=== PATIENT | male | born 1950 | race Caucasian/White ===

== ENCOUNTER 2017-11-26 12:33 | Emergency (ER) | payer MEDICARE ==
[2017-11-26] MEDS ORDERED: Ondansetron 4 MG/2 ML SDV IVPUSH ONE (13:15)
[2017-11-26] MEDS ORDERED: HYDROmorphone 1 MG/ML Syringe IVPUSH ONE (13:18)
[2017-11-26 13:23] LABS: CHLORIDE,CL 103 mmol/L (98-115); SODIUM,NA 140 mmol/L (136-145)
[2017-11-26] MEDS ORDERED: Ketorolac 30 MG/ML SDV IVPUSH ONE (13:27)
--- NOTE | 2017-11-26 13:27 | EDM.PDOC ---
ED HPI GENERAL MEDICAL PROBLEM - General Chief Complaint: Abdominal Pain Stated Complaint: CHEST PAIN Time Seen by Provider: 11/26/17 13:14 Source of Information: Reports: Patient History Limitations: Reports: No Limitations - History of Present Illness INITIAL COMMENTS - FREE TEXT/NARRATIVE: Patient presents with abdominal pain that started about 6 hours ago at 0730 this morning. He took his morning meds but hasn't eaten anything today. He feels "backed up". He had a bowel movement yesterday but nothing today and not passing gas. He doesn't feel much pressure at the rectum. Lots of belching and abdominal pressure. He says he has had this a few times before, most recently 4-6 weeks ago. They usually last about a day and resolve after passing gas/stool and belching. This one seems a little worse and he isn't passing gas. He normally passes stool daily regularly. He has nausea but no vomiting. Abdominal Pain Score (Numeric/FACES): 6 - Related Data Allergies Allergy/AdvReac Type Severity Reaction Status Date / Time No Known Drug Allergies Allergy Cannot Verified 11/26/17 12:42 Remember Home Meds: Home Meds Aspirin [Adult Aspirin] 81 mg PO DAILY 11/26/17 [History] Lisinopril 20 mg PO DAILY 11/26/17 [History] Metoprolol Tartrate [Lopressor] 25 mg PO Q12HR 11/26/17 [History] Multivitamin [Multivitamins] 1 each PO DAILY 11/26/17 [History] Tamsulosin HCl [Flomax] 0.4 mg PO DAILY 11/26/17 [History] Social & Family History - Tobacco Use Smoking Status *Q: Current Every Day Smoker Years of Tobacco use: 55 Packs/Tins Daily: 1 Second Hand Smoke Exposure: Yes - Caffeine Use Caffeine Use: Reports: Soda - Recreational Drug Use Recreational Drug Use: No ED ROS GENERAL - Review of Systems Review Of Systems: See Below Constitutional: Denies: Fever, Chills, Weakness HEENT: Reports: No Symptoms Respiratory: Reports: No Symptoms. Denies: Shortness of Breath Cardiovascular: Reports: No Symptoms. Denies: Chest Pain, Lightheadedness, Syncope Endocrine: Reports: No Symptoms GI/Abdominal: Reports: Abdominal Pain, Decreased Appetite, Nausea. Denies: Bloody Stool, Constipation (not generally), Diarrhea, Vomiting : Reports: No Symptoms. Denies: Flank Pain Musculoskeletal: Reports: No Symptoms Skin: Reports: No Symptoms. Denies: Cyanosis, Jaundice, Mottled, Pallor, Diaphoresis Neurological: Reports: No Symptoms. Denies: Confusion, Seizure, Syncope, Weakness, Change in Speech Psychiatric: Denies: Agitation, Anxiety, Confusion ED EXAM, GI/ABD - Physical Exam Exam: See Below Exam Limited By: No Limitations General Appearance: Alert, WD/WN, No Apparent Distress Eyes: Bilateral: Normal Appearance, EOMI Ears: Normal External Exam, Hearing Grossly Normal Nose: Normal Inspection, No Blood Throat/Mouth: Normal Inspection, Normal Lips, Normal Voice, No Airway Compromise Head: Atraumatic, Normocephalic Neck: Normal Inspection, Full Range of Motion Respiratory/Chest: No Respiratory Distress, Lungs Clear, Normal Breath Sounds, No Accessory Muscle Use Cardiovascular: Regular Rate, Rhythm, No Murmur, No Rub GI/Abdominal Exam: Distended, Guarding, Tender (tender generally throughout but worse at umbilicus and suprapubic.), Abnormal Bowel Sounds (decreased). No: Rigid Rectal (Males) Exam: Normal Exam, Normal Rectal Tone, BPH, Heme - Stool. No: Black Stool, Fecal Impaction, Hemorrhoids, Mass, Perirectal Abscess, Prostate Nodule, Rectal Fissure, Tenderness Back Exam: Full Range of Motion. No: CVA Tenderness (L), CVA Tenderness (R) Extremities: Normal Inspection Neurological: Alert, Oriented, Normal Cognition, No Motor/Sensory Deficits Psychiatric: Normal Affect, Normal Mood Skin Exam: Warm, Dry, Intact, Normal Color, No Rash Course - Vital Signs Last Recorded V/S: Last Vital Signs Temp 95.8 F 11/26/17 12:40 Pulse 56 L 11/26/17 12:40 Resp 16 11/26/17 12:40 BP 142/84 H 11/26/17 12:40 Pulse Ox 97 11/26/17 12:40 - Orders/Labs/Meds Orders: Active Orders 24 hr Category Date Time Status Abdomen Pelvis w Cont [CT] Stat Exams 11/26/17 13:27 Ordered Sodium Chloride 0.9% [Normal Saline] 50 ml Med 11/26/17 14:00 Active IV ASDIRECTED Medication Orders Sodium Chloride (Normal Saline) 50 mls @ 3 mls/sec IV ASDIRECTED JONI Last Admin: 11/26/17 15:25 Dose: 3 mls/sec Labs: Laboratory Tests 11/26/17 11/26/17 Range/Units 13:00 13:00 WBC 8.7 (5.0-10.0) 10^3/uL RBC 4.91 (4.50-6.00) 10^6/uL Hgb 15.2 (13.0-17.0) g/dL Hct 45.7 (40.0-52.0) % MCV 93.0 H (82.0-92.0) fL MCH 31.0 (27.0-31.0) pg MCHC 33.4 (32.0-36.0) g/dL RDW 13.4 (11.5-14.5) % Plt Count 162 (150-300) 10^3/uL MPV 8.5 (7.4-10.4) fL Neut % (Auto) 74.3 H (50.0-70.0) % Lymph % (Auto) 17.0 L (20.0-40.0) % [place] % (Auto) 6.7 (2.0-8.0) % Eos % (Auto) 1.8 (1.0-3.0) % Baso % (Auto) 0.2 (0.0-1.0) % Neut # (Auto) 6.4 (2.5-7.0) 10^3/uL Lymph # (Auto) 1.5 (1.0-4.0) 10^3/uL [place] # (Auto) 0.6 (0.1-0.8) 10^3/uL Eos # (Auto) 0.2 (0.1-0.3) 10^3/uL Baso # (Auto) 0.0 (0.0-0.1) 10^3/uL Sodium 140 (136-145) mmol/L Potassium 4.3 (3.3-5.3) mmol/L Chloride 103 (98-115) mmol/L Carbon Dioxide 29.5 (21.0-32.0) mmol/L BUN 12 (6-25) mg/dL Creatinine 0.94 (0.51-1.17) mg/dL Est Cr Clr Drug Dosing 58.09 mL/min Estimated GFR (MDRD) > 60 mL/min Glucose 128 H (70-110) mg/dL Calcium 9.1 (8.7-10.3) mg/dL Total Bilirubin 0.5 (0.2-1.0) mg/dL AST 19 (15-37) U/L ALT 21 (12-78) U/L Alkaline Phosphatase 102 (46-116) IU/L Total Protein 7.2 (6.4-8.2) g/dL Albumin 3.89 (3.00-4.80) g/dL Lipase 129 (73-393) U/L Meds: Medications Generic Name Dose Route Start Last Admin Trade Name Freq PRN Reason Stop Dose Admin Sodium Chloride 50 mls @ 3 mls/sec 11/26/17 14:00 11/26/17 15:25 Normal Saline IV 3 mls/sec ASDIRECTED JONI Administration Discontinued Medications Generic Name Dose Route Start Last Admin Trade Name Freq PRN Reason Stop Dose Admin Hydromorphone HCl 1 mg 11/26/17 13:18 11/26/17 13:28 Dilaudid IVPUSH 11/26/17 13:19 1 mg ONETIME ONE Administration Sodium Chloride 1,000 mls @ 999 mls/hr 11/26/17 13:33 11/26/17 13:39 Normal Saline IV 11/26/17 14:33 999 mls/hr .BOLUS ONE Administration Iopamidol 75 ml 11/26/17 13:48 11/26/17 15:25 Isovue-300 (61%) IV 75 ml . DIRECTED PRN Administration FOR RADIOLOGY EXAM Ketorolac Tromethamine 30 mg 11/26/17 13:27 11/26/17 13:30 Toradol IVPUSH 11/26/17 13:28 30 mg ONETIME ONE Administration Ondansetron HCl 4 mg 11/26/17 13:15 11/26/17 13:15 Zofran IVPUSH 11/26/17 13:16 4 mg ONETIME ONE Administration - Re-Assessments/Exams Free Text/Narrative Re-Assessment/Exam: 11/26/17 14:44 Labs okay. Patient reports pain is down to 3 or 4 from 10 after Dilaudid and Toradol. The CT attempt didn't work due to scanner difficulties. [employer] is checking something and we will transfer to [place] (patient's preference) if we can't get the scan here. The concern is still bowel obstruction as patient is not passing gas and much less belching than he usually has when he gets these episodes. Usually the episodes are relieved when he can pass a bunch of gas and belching but today is worse. Rectal exam reveals no fecal impaction at all. 11/26/17 16:17 CT reveals acute uncomplicated diverticulitis at junction of descending and sigmoid segments of colon. Discussed findings with Dr. Tristan and with patient along with treatment plan. Patient is feeling much better now and wants to just use Ibuprofen at home as he wishes to avoid narcotics. Discharged to home in stable condition. Departure - Departure Time of Disposition: 16:14 Disposition: Home, Self-Care 01 Condition: Good Clinical Impression: Acute diverticulitis - Discharge Information Referrals: Abigail Dahl MD [Primary Care Provider] - Forms: ED Department Discharge Additional Instructions: 1. Drink 8 cups of water daily. 2. Take the Ciprofloxacin and the Metronidazole as directed. 3. For pain control you can use Ibuprofen 600 mg every 8 hours as needed. 4. Follow up with your PCP next week for recheck or sooner if worsening. - My Orders Last 24 Hours: My Active Orders 11/26/17 13:27 Abdomen Pelvis w Cont [CT] Stat 11/26/17 14:00 Sodium Chloride 0.9% [Normal Saline] 50 ml IV ASDIRECTED - Assessment/Plan Last 24 Hours: My Active Orders 11/26/17 13:27 Abdomen Pelvis w Cont [CT] Stat 11/26/17 14:00 Sodium Chloride 0.9% [Normal Saline] 50 ml IV ASDIRECTED
[2017-11-26] MEDS ORDERED: Sodium Chloride 0.9% 1,000 ML IV ONE (13:33)
[2017-11-26] MEDS ORDERED: Iopamidol 612 MG/ML 75 ML Bottle IV PRN (13:48)
[2017-11-26] MEDS ORDERED: Sodium Chloride 0.9% 50 ML IV SCH (14:00)
== END 2017-11-26 16:40 | disposition home or self-care (01) ==
LOC: KA.ED 12:33
DX: K57.32 Diverticulitis of large intestine without perforation or abscess without bleeding (principal); F17.210 Nicotine dependence, cigarettes, uncomplicated; Z79.82 Long term (current) use of aspirin
CPT/HCPCS: 74177; 80053; 83690; 85025; 96361; 96374; 96375; 99285; J1170; J1885; J2405; J7030; J7050; Q9967; 99284

== ENCOUNTER 2017-12-14 00:10 | Emergency (ER) | payer MEDICARE, OTHER ==
[2017-12-14] MEDS ORDERED: Sodium Chloride 0.9% 5 ML Syringe FLUSH PRN (00:40)
[2017-12-14] MEDS ORDERED: HYDROmorphone 1 MG/ML Syringe IVPUSH ONE ×2 (00:47→01:21)
[2017-12-14] MEDS ORDERED: Ondansetron 4 MG/2 ML SDV IVPUSH ONE (00:47)
--- NOTE | 2017-12-14 00:47 | EDM.PDOC ---
ED HPI GENERAL MEDICAL PROBLEM - General Chief Complaint: Abdominal Pain Stated Complaint: lower abdominal pain Time Seen by Provider: 12/14/17 00:10 Source of Information: Reports: Patient History Limitations: Reports: No Limitations - History of Present Illness INITIAL COMMENTS - FREE TEXT/NARRATIVE: 66 YO WM presents to ER complaining of right inguinal hernia pain which began today. Pt reports he noticed increased swelling in right lower groin today with minimal pain. Pt was seen by Dr Min- Surgery in [facility] today who evaluated patient and recommended inguinal hernia repair and scheduled surgery for wednesday12/17/17. Pt states tonight pain became more severe and he noticed he was unable to reduce the swelling in his groin on his own prompting ER evaluation. Pt denies nausea/vomiting. Pt reports he is unable to move bowels or pass gas at this time. Onset: Today Onset Date: 12/14/17 Location: Reports: Abdomen Quality: Reports: Ache Severity: Moderate Improves with: Reports: None Worsens with: Reports: None Associated Symptoms: Reports: No Other Symptoms - Related Data Allergies Allergy/AdvReac Type Severity Reaction Status Date / Time No Known Drug Allergies Allergy Cannot Verified 11/26/17 12:42 Remember Home Meds: Home Meds Aspirin [Adult Aspirin] 81 mg PO DAILY 11/26/17 [History] Lisinopril 20 mg PO DAILY 11/26/17 [History] Metoprolol Tartrate [Lopressor] 25 mg PO Q12HR 11/26/17 [History] Multivitamin [Multivitamins] 1 each PO DAILY 11/26/17 [History] Past Medical History Cardiovascular History: Reports: Hypertension Respiratory History: Reports: None Gastrointestinal History: Reports: None Genitourinary History: Reports: Prostate Disorder Musculoskeletal History: Reports: None Neurological History: Reports: None Psychiatric History: Reports: None Endocrine/Metabolic History: Reports: None Hematologic History: Reports: None Dermatologic History: Reports: None - Infectious Disease History Infectious Disease History: Reports: Chicken Pox - Past Surgical History HEENT Surgical History: Reports: Oral Surgery Cardiovascular Surgical History: Reports: None Respiratory Surgical History: Reports: None GI Surgical History: Reports: None Male Surgical History: Reports: None Endocrine Surgical History: Reports: None Neurological Surgical History: Reports: None Musculoskeletal Surgical History: Reports: None Dermatological Surgical History: Reports: None Social & Family History - Family History Family Medical History: Noncontributory - Caffeine Use Caffeine Use: Reports: Soda ED ROS GENERAL - Review of Systems Review Of Systems: See Below Constitutional: Reports: No Symptoms HEENT: Reports: No Symptoms Respiratory: Reports: No Symptoms Cardiovascular: Reports: No Symptoms Endocrine: Reports: No Symptoms GI/Abdominal: Reports: Abdominal Pain : Reports: No Symptoms Musculoskeletal: Reports: No Symptoms Skin: Reports: No Symptoms Neurological: Reports: No Symptoms Psychiatric: Reports: No Symptoms Hematologic/Lymphatic: Reports: No Symptoms Immunologic: Reports: No Symptoms ED EXAM, GI/ABD - Physical Exam Exam: See Below Exam Limited By: No Limitations General Appearance: Alert, WD/WN, No Apparent Distress Head: Atraumatic, Normocephalic Neck: Normal Inspection, Supple, Non-Tender, Full Range of Motion Respiratory/Chest: No Respiratory Distress, Lungs Clear, Normal Breath Sounds, No Accessory Muscle Use, Chest Non-Tender Cardiovascular: Normal Peripheral Pulses, Regular Rate, Rhythm, No Edema, No Gallop, No JVD, No Murmur, No Rub GI/Abdominal Exam: Normal Bowel Sounds, Soft, No Organomegaly, No Abnormal Bruit , Pelvis Stable, Distended, Guarding, Tender, Hernia (Male) Exam: Hernia Back Exam: Normal Inspection, Full Range of Motion, NT Extremities: Normal Inspection, Normal Range of Motion, Non-Tender, Normal Capillary Refill, No Pedal Edema Neurological: Alert, Oriented, CN II-XII Intact, Normal Cognition, Normal Gait, Normal Reflexes, No Motor/Sensory Deficits Psychiatric: Normal Affect, Normal Mood Skin Exam: Warm, Dry, Intact, Normal Color, No Rash Lymphatic: No Adenopathy Course - Vital Signs Last Recorded V/S: Last Vital Signs Temp 36.4 C 12/14/17 00:40 Pulse 67 12/14/17 00:40 Resp 20 12/14/17 00:40 BP 171/99 H 12/14/17 00:40 Pulse Ox 97 12/14/17 00:40 - Orders/Labs/Meds Orders: Active Orders 24 hr Category Date Time Status Peripheral IV Care [RC] . DIRECTED Care 12/14/17 00:40 Ordered CBC WITH AUTO DIFF [HEME] Stat Lab 12/14/17 00:40 Ordered COMPREHENSIVE METABOLIC PN,CMP [CHEM] Stat Lab 12/14/17 00:40 Ordered LIPASE [CHEM] Stat Lab 12/14/17 00:40 Ordered UA W/MICROSCOPIC [URIN] Stat Lab 12/14/17 00:40 Ordered Sodium Chloride 0.9% [Syrex Flush] Med 12/14/17 00:40 Ordered 5 ml FLUSH Q8HR PRN Peripheral IV Insertion Adult [OM.PC] Routine Oth 12/14/17 00:40 Ordered Medication Orders Sodium Chloride (Syrex Flush) 5 ml FLUSH Q8HR PRN PRN Reason: Keep Vein Open Meds: Medications Generic Name Dose Route Start Last Admin Trade Name Freq PRN Reason Stop Dose Admin Sodium Chloride 5 ml 12/14/17 00:40 Syrex Flush FLUSH Q8HR PRN Keep Vein Open Discontinued Medications Generic Name Dose Route Start Last Admin Trade Name Freq PRN Reason Stop Dose Admin Hydromorphone HCl 1 mg 12/14/17 00:47 Dilaudid IVPUSH 12/14/17 00:48 ONETIME ONE Hydromorphone HCl Confirm 12/14/17 00:49 Dilaudid Administered 12/14/17 00:50 Dose 1 mg .ROUTE .STK-MED ONE Ondansetron HCl 4 mg 12/14/17 00:47 Zofran IVPUSH 12/14/17 00:48 ONETIME ONE Ondansetron HCl Confirm 12/14/17 00:49 Zofran Administered 12/14/17 00:50 Dose 4 mg .ROUTE .STK-MED ONE - Re-Assessments/Exams Free Text/Narrative Re-Assessment/Exam: 12/14/17 01:09 attempted to reduced inguinal hernia in ER and was unsuccessful. Call placed to Dr Min- General Surgery for further management. Departure - Departure Time of Disposition: 01:22 Disposition: DC/Tfer to Acute Hospital 02 Condition: Fair Clinical Impression: Incarcerated right inguinal hernia - Discharge Information Forms: ED Department Discharge, Interfacility Transfer EMTALA - My Orders Last 24 Hours: My Active Orders 12/14/17 00:40 Peripheral IV Care [RC] . DIRECTED CBC WITH AUTO DIFF [HEME] Stat COMPREHENSIVE METABOLIC PN,CMP [CHEM] Stat LIPASE [CHEM] Stat UA W/MICROSCOPIC [URIN] Stat Sodium Chloride 0.9% [Syrex Flush] 5 ml FLUSH Q8HR PRN Peripheral IV Insertion Adult [OM.PC] Routine - Assessment/Plan Last 24 Hours: My Active Orders 12/14/17 00:40 Peripheral IV Care [RC] . DIRECTED CBC WITH AUTO DIFF [HEME] Stat COMPREHENSIVE METABOLIC PN,CMP [CHEM] Stat LIPASE [CHEM] Stat UA W/MICROSCOPIC [URIN] Stat Sodium Chloride 0.9% [Syrex Flush] 5 ml FLUSH Q8HR PRN Peripheral IV Insertion Adult [OM.PC] Routine Assessment:: 1. right inguinal hernia- incarcerated- Unable to reduce with manual pressure Plan: 1. Transfer to [facility] for surgical intervention and evaluation- Dr Min 2. NS @ 125cc/hr 3. Dilaudid/zofran 4. supportive care
[2017-12-14] MEDS ORDERED: Ondansetron 4 MG/2 ML SDV ONE (00:49)
[2017-12-14] MEDS ORDERED: HYDROmorphone 1 MG/ML Syringe ONE (00:49)
[2017-12-14] MEDS ORDERED: Sodium Chloride 0.9% 1,000 ML IV ONE (01:22)
[2017-12-14 01:40] LABS: CHLORIDE,CL 99 mmol/L (98-115); SODIUM,NA 135 mmol/L (136-145)
== END 2017-12-14 01:45 ==
LOC: KA.ED 00:10
DX: K46.0 Unspecified abdominal hernia with obstruction, without gangrene (principal); I10 Essential (primary) hypertension; Z79.82 Long term (current) use of aspirin; Z79.899 Other long term (current) drug therapy
CPT/HCPCS: 80053; 83690; 85025; 96374; 99285; J1170; J2405; J7030; 99284

== ENCOUNTER 2020-07-30 08:54 | Day surgery (SDC) | payer MEDICARE ==
[~2020-07-30 08:54] MED LIST: Lactated Ringers 1,000 ML IV SCH; Sodium Chloride 0.9% 10 ML Syringe FLUSH PRN
[2020-07-30] MEDS ORDERED: Midazolam 1 MG/ML 2 ML SDV IV ONE (08:55)
[2020-07-30] MEDS ORDERED: Propofol 200 MG/20 ML SDV IV ONE (08:55)
[2020-07-30] MEDS ORDERED: Propofol 200 MG/20 ML SDV ONE (09:43)
[2020-07-30] MEDS ORDERED: Midazolam 1 MG/ML 2 ML SDV ONE (09:43)
--- NOTE | 2020-07-30 09:44 | PCM.PN ---
- General Info Date of Service: 07/30/20 - Review of Systems Systems Review Comment:: 69-year-old male referred for his initial colonoscopy. He did have some diarrhea after use of antibiotics recently although this seems to have cleared now. He denies any family history of colon cancer. His history and physical is reviewed and no significant changes are noted. I have discussed the proposed colonoscopy with the patient. Risks such as but not limited to bleeding and GI injury reviewed. He agrees to proceed. - Patient Data Vitals - Most Recent: Last Vital Signs Temp 96.7 F L 07/30/20 09:10 Pulse 63 07/30/20 09:10 Resp 16 07/30/20 09:10 BP 138/83 07/30/20 09:10 Pulse Ox 98 07/30/20 09:10 Weight - Most Recent: 69.853 kg Med Orders - Current: Current Medications Lactated Ringer's (Ringers, Lactated) 1,000 mls @ 50 mls/hr IV ASDIRECTED [facility] Last Admin: 07/30/20 09:31 Dose: 50 mls/hr Documented by: Sodium Chloride (Saline Flush) 10 ml FLUSH Q8HR PRN PRN Reason: keep vein open Sepsis Event Note - Focused Exam Vital Signs: Vital Signs Temp Pulse Resp BP Pulse Ox 07/30/20 09:10 96.7 F L 63 16 138/83 98 - Problem List Review Problem List Initiated/Reviewed/Updated: Yes - My Orders Last 24 Hours: My Active Orders 07/30/20 07:33 Resuscitation Status Routine 07/30/20 Breakfast Nothing Per Oral Diet [DIET] 07/30/20 08:45 Peripheral IV Care [RC] . DIRECTED Lactated Ringers [Ringers, Lactated] 1,000 ml IV ASDIRECTED Sodium Chloride 0.9% [Saline Flush] 10 ml FLUSH Q8HR PRN Peripheral IV Insertion Adult [OM.PC] Routine 07/30/20 09:00 Patient to Empty Bladder [RC] ASDIRECTED 07/30/20 09:45 Verify Patient Consent Obtain [RC] ASDIRECTED - Assessment Assessment:: Colon cancer screening - Plan Plan:: Colonoscopy
--- NOTE | 2020-07-30 10:30 | PCM.OPNOTE ---
- General Post-Op/Procedure Note Date of Surgery/Procedure: 07/30/20 Operative Procedure(s): Colonoscopy with Polypectomy and Biopsy Findings: Flat mass in colon wall 12-15cm from anal verge Pedunculated polyp rectum 1cm from anal verge Extensive diverticulosis in Sigmoid colon Pre Op Diagnosis: Colon Cancer Screening Post-Op Diagnosis: Colon Mass. Colon Polyp. Sigmoid Diverticulosis Anesthesia Technique: MAC Primary Surgeon: Osmar Daniel Pathology: Colon polyp Biopsies of colon mass EBL in mLs: 3 Complications: None Condition: Good
--- NOTE | 2020-07-30 19:05 | OR ---
DATE OF SURGERY: 07/30/2020 SURGEON: Osmar Daniel MD PREOPERATIVE DIAGNOSIS: Colon cancer screening. POSTOPERATIVE DIAGNOSIS: Colon mass, rectal polyp, sigmoid diverticulosis. OPERATION PERFORMED: Colonoscopy with polypectomy and biopsy. INDICATIONS FOR SURGERY: This 69-year-old male is referred today for his initial screening colonoscopy. He did have some recent diarrhea related to antibiotic use, but this has now cleared. He denies any family history of colon cancer. FINDINGS: In the sigmoid colon approximately 12-15 cm from the anal verge, the patient has a flat mass approximately 3 cm in size. It is somewhat firm and slightly raised. It is visibly worrisome for malignancy, although no ulceration is noted. There is a pedunculated polyp 1 cm in size located in the rectum 1 cm from the anal verge. The patient also has extensive diverticulosis throughout the sigmoid colon. Although this does not appear to be acutely inflamed. PROCEDURE IN DETAIL: The patient was taken to the operating room. He was given intravenous sedation and with him in the left lateral decubitus position, digital rectal exam was performed showing no rectal masses. The Olympus colonoscope was inserted into the rectum. Retroflexed examination of the rectal canal is performed. The above-described polyp in the rectum was identified. This was removed with a cautery snare and retrieved. The scope was then carefully advanced under direct visualization through the entire length of the colon until the cecum is reached. Cecal acquisition is confirmed by noting the normal internal cecal anatomy including the appendiceal orifice and the ileocecal valve. The light was also noted to transilluminate the abdominal wall in the right lower quadrant. After examining the cecum, the scope was slowly withdrawn sequentially re-examining the colonic segments. In the distal sigmoid region, the above-described flat colon mass is identified because of its size and configuration and it could not be safely and completely removed with standard polypectomy technique, so multiple biopsies of the mass are taken to rule out malignancy. Tattoo is placed in the mucosal wall near this mass for future identification. The examination is completed and with no sign of any complications, the scope was removed. The patient was taken from the operating room in satisfactory condition. ESTIMATED BLOOD LOSS: 3 mL. COMPLICATIONS: None. PROGNOSIS: Good. /[id number]/MODL MTDD
== END 2020-07-30 11:55 | disposition home or self-care (01) ==
LOC: KA.SDS 08:54
PROVIDERS: ATTEND Surgery
DX: Z12.11 Encounter for screening for malignant neoplasm of colon (principal); C18.7 Malignant neoplasm of sigmoid colon; K57.30 Diverticulosis of large intestine without perforation or abscess without bleeding; I10 Essential (primary) hypertension; F17.200 Nicotine dependence, unspecified, uncomplicated; Z88.1 Allergy status to other antibiotic agents; Z79.82 Long term (current) use of aspirin; Z79.899 Other long term (current) drug therapy; Z98.890 Other specified postprocedural states
CPT/HCPCS: 00812; 88305; 88341; 88342; J2250; J2704; J7120

== ENCOUNTER 2021-06-22 07:35 | Emergency (ER) | payer MEDICARE, OTHER ==
[2021-06-22 08:24] LABS: ANION GAP 14.9 mmol/L (5-15); CHLORIDE,CL 99 mmol/L (98-107); SODIUM,NA 138 mmol/L (136-145)
--- NOTE | 2021-06-22 08:30 | EDM.PDOC ---
ED HPI GENERAL MEDICAL PROBLEM - General Chief Complaint: Respiratory Problem Stated Complaint: SHORT OF BREATH Time Seen by Provider: 06/22/21 08:07 Source of Information: Reports: Patient History Limitations: Reports: No Limitations - History of Present Illness INITIAL COMMENTS - FREE TEXT/NARRATIVE: Patient presents with dyspnea and a tickle in his throat. The tickle started 7 days ago and slowly progressed. He also has a cough. He is a 50+year smoker and suspects that he has COPD. He denies any heart problems or diabetes. For a long time he has had a hernia in the left lower abdomen. It has been hurting some when he coughs too much; it doesn't protrude very often and he can tell when it is "out". - Related Data Allergies Allergy/AdvReac Type Severity Reaction Status Date / Time clindamycin Allergy Diarrhea Verified 06/22/21 08:00 Home Meds: Home Meds Aspirin [Adult Aspirin] 81 mg PO DAILY 11/26/17 [History] Lisinopril 20 mg PO DAILY 11/26/17 [History] Metoprolol Tartrate [Lopressor] 25 mg PO Q12HR 11/26/17 [History] Multivitamin [Multivitamins] 1 each PO DAILY 11/26/17 [History] Triamcinolone Acetonide [Triamcinolone Acetonide 0.1% Crm] 1 applic TOP TID 07/29/20 [History] Past Medical History HEENT History: Reports: None Cardiovascular History: Reports: Hypertension Respiratory History: Reports: None Gastrointestinal History: Reports: Hemorrhoids Other Gastrointestinal History: Inguinal hernia present, no flatus at this time, lots of bealching. Genitourinary History: Reports: Prostate Disorder, STD Musculoskeletal History: Reports: None Neurological History: Reports: None Psychiatric History: Reports: Addiction Endocrine/Metabolic History: Reports: None Hematologic History: Reports: None Immunologic History: Reports: None Oncologic (Cancer) History: Reports: None Dermatologic History: Reports: None - Infectious Disease History Infectious Disease History: Reports: Chicken Pox - Past Surgical History Head Surgeries/Procedures: Reports: None HEENT Surgical History: Reports: Oral Surgery Cardiovascular Surgical History: Reports: None Respiratory Surgical History: Reports: None GI Surgical History: Reports: Hernia, Inguinal Male Surgical History: Reports: Vasectomy Endocrine Surgical History: Reports: None Neurological Surgical History: Reports: None Musculoskeletal Surgical History: Reports: None Oncologic Surgical History: Reports: None Dermatological Surgical History: Reports: None Social & Family History - Family History Family Medical History: No Pertinent Family History - Tobacco Use Tobacco Use Status *Q: Current Every Day Tobacco User Years of Tobacco use: 50 Packs/Tins Daily: 1 Used Tobacco, but Quit: No - Caffeine Use Caffeine Use: Reports: None - Recreational Drug Use Recreational Drug Use: No ED ROS GENERAL - Review of Systems Review Of Systems: See Below Constitutional: Denies: Fever, Chills, Malaise, Weakness, Fatigue HEENT: Denies: Ear Pain, Throat Pain, Vision Change Respiratory: Reports: Shortness of Breath, Cough Cardiovascular: Denies: Chest Pain, Lightheadedness, Syncope GI/Abdominal: Reports: Abdominal Pain (LLQ hernia that hurts when he coughs too much). Denies: Vomiting : Denies: Dysuria, Flank Pain Musculoskeletal: Reports: No Symptoms Skin: Denies: Cyanosis, Jaundice, Mottled, Pallor, Diaphoresis Neurological: Denies: Confusion, Dizziness, Headache, Seizure, Syncope, Trouble Speaking, Difficulty Walking Psychiatric: Denies: Agitation, Anxiety, Confusion ED EXAM, GENERAL - Physical Exam Exam: See Below Exam Limited By: No Limitations General Appearance: Alert, WD/WN, No Apparent Distress Eye Exam: Bilateral Eye: EOMI, Normal Inspection, PERRL Ears: Normal External Exam, Hearing Grossly Normal Nose: Normal Inspection, No Blood Throat/Mouth: Normal Inspection, Normal Lips, Normal Oropharynx, Normal Voice, No Airway Compromise Head: Atraumatic, Normocephalic Neck: Normal Inspection, Full Range of Motion Respiratory/Chest: No Respiratory Distress, No Accessory Muscle Use, Crackles (right lung base) Cardiovascular: Normal Peripheral Pulses, Regular Rate, Rhythm, No Edema, No Murmur GI/Abdominal: Normal Bowel Sounds, Soft, Non-Tender, No Organomegaly, Other (Exam doesn't show any sign of hernia currently and he says he can tell it is not "out" now.) Back Exam: Normal Inspection, Full Range of Motion. No: CVA Tenderness (L), CVA Tenderness (R) Extremities: Normal Inspection, Normal Range of Motion Neurological: Alert, Oriented, Normal Cognition, No Motor/Sensory Deficits Psychiatric: Normal Affect, Normal Mood Skin Exam: Warm, Dry, Intact, Normal Color, No Rash Course - Vital Signs Last Recorded V/S: Last Vital Signs Temp 96.6 F L 06/22/21 07:40 Pulse 57 L 06/22/21 08:34 Resp 16 06/22/21 08:34 BP 144/93 H 06/22/21 08:34 Pulse Ox 96 06/22/21 08:34 - Orders/Labs/Meds Labs: Laboratory Tests 06/22/21 06/22/21 Range/Units 07:54 07:54 WBC 6.50 (5.00-10.00) 10^3/uL RBC 4.69 (4.50-6.00) 10^6/uL Hgb 14.4 (13.0-17.0) g/dL Hct 41.6 (40.0-52.0) % MCV 88.7 D (82.0-92.0) fL MCH 30.7 (27.0-31.0) pg MCHC 34.6 (32.0-36.0) g/dL RDW 12.9 (11.5-14.5) % Plt Count 110 L D (150-400) 10^3/uL MPV 10.2 (7.4-10.4) fL Immature Gran % (Auto) 0.2 (0.0-5.0) % Neut % (Auto) 79.6 H (50.0-70.0) % Lymph % (Auto) 10.0 L (20.0-40.0) % [place] % (Auto) 9.5 H (2.0-8.0) % Eos % (Auto) 0.5 L (1.0-3.0) % Baso % (Auto) 0.2 (0.0-1.0) % Neut # (Auto) 5.18 (2.50-7.00) 10^3/uL Lymph # (Auto) 0.65 L (1.00-4.00) 10^3/uL [place] # (Auto) 0.62 (0.10-0.80) 10^3/uL Eos # (Auto) 0.03 L (0.10-0.30) 10^3/uL Baso # (Auto) 0.01 (0.00-0.10) 10^3/uL Immature Gran # (Auto) 0.01 (0.00-0.50) 10^3/uL Sodium 138 (136-145) mmol/L Potassium 3.5 (3.5-5.1) mmol/L Chloride 99 (98-107) mmol/L Carbon Dioxide 27.6 (21.0-32.0) mmol/L Anion Gap 14.9 (5-15) mmol/L BUN 15 (7-18) mg/dL Creatinine 0.88 (0.51-1.17) mg/dL Est Cr Clr Drug Dosing 58.60 mL/min Estimated GFR (MDRD) > 60 mL/min Glucose 100 (70-140) mg/dL Calcium 8.9 (8.7-10.3) mg/dL Total Bilirubin 0.9 (0.2-1.0) mg/dL AST 48 H (15-37) U/L ALT 32 (14-63) U/L Alkaline Phosphatase 106 (46-116) U/L Total Protein 7.6 (6.4-8.2) g/dL Albumin 4.10 (3.40-5.00) g/dL Meds: Medications Discontinued Medications Generic Name Dose Route Start Last Admin Trade Name Freq PRN Reason Stop Dose Admin Azithromycin 500 mg 06/22/21 09:19 Azithromycin 250 Mg Tab PO 06/22/21 09:20 ONETIME ONE Cefdinir 600 mg 06/22/21 09:19 Cefdinir 300 Mg Cap PO 06/22/21 09:20 ONETIME ONE - Re-Assessments/Exams Free Text/Narrative Re-Assessment/Exam: 06/22/21 09:22 CXR shows a possible mild infiltrate in RLL to my eye; the report calling it airway disease. I discussed findings and treatment plan with patient. He declines prednisone as the one time he had it in the past, it didn't agree with him. Will give Zithromax now and a Z-pack to follow; Cefdinir 300 mg bid for 10 days. Patient discharged to home in stable condition. Departure - Departure Time of Disposition: : Disposition: Home, Self-Care 01 Condition: Good Clinical Impression: COPD exacerbation - Discharge Information Referrals: Abigail Dahl MD [Primary Care Provider] - Forms: ED Department Discharge Additional Instructions: Drink 8 cups of water daily. Take the antibiotics as directed. Follow up with your PCP if not improving in a week. If worsening, recheck in clinic or ER as needed. Sepsis Event Note (ED) - Evaluation Sepsis Screening Result: No Definite Risk - Focused Exam Vital Signs: Vital Signs Temp Pulse Resp BP Pulse Ox 06/22/21 08:34 57 L 16 144/93 H 96 06/22/21 08:04 58 L 19 159/94 H 93 L 06/22/21 07:40 96.6 F L 65 16 179/105 H 95
--- NOTE | 2021-06-22 09:09 | CR ---
[id number] RAD/RAD Chest PA And Lateral EXAM: RAD Chest PA And Lateral CLINICAL DATA: COUGH COMPARISON: CORRELATION IS MADE WITH JULY 29, 2020 FINDINGS: The lungs are clear but hyperaerated. The cardiomediastinal contour is enlarged but stable. The regional bones and soft tissues are unremarkable. IMPRESSION: AIRWAY DISEASE Tee Hebert MD 06/22/21 0907 Thank you for allowing us to participate in the care of your patient.
[2021-06-22] MEDS ORDERED: Azithromycin 250 MG Tab PO ONE (09:19)
[2021-06-22] MEDS ORDERED: Cefdinir 300 MG Cap PO ONE (09:19)
== END 2021-06-22 09:45 | disposition home or self-care (01) ==
LOC: KA.ED 07:35
DX: J44.1 Chronic obstructive pulmonary disease with (acute) exacerbation (principal); I10 Essential (primary) hypertension; Z88.8 Allergy status to other drugs, medicaments and biological substances
CPT/HCPCS: 36415; 71046; 80053; 85025; 99285; A9270; 99284